=== PATIENT | male | born 1950 | race Two or more races ===

== ENCOUNTER 2020-06-18 08:21 | Emergency (ER) | payer OTHER, MEDICAID ==
[~2020-06-18] VITALS: Ht 175.3 cm; Wt 99.8 kg
[2020-06-18 08:58] VITALS: BP 146/85
[2020-06-18 09:40] LABS: Basophils # (auto) 0 10 ^3/uL (0-0.2); Basophils % (auto) 0.5 % (0.0-2.0); Eosinophils # (auto) 0 10 ^3/uL (0-0.8); Eosinophils % (auto) 0.4 % (0.0-7.0); Hematocrit 48.5 % (41.0-53.0); Hemoglobin 16.6 g/dL (13.5-17.5); Lymphocytes # (auto) 1.9 10 ^3/uL (0.4-5.4); Lymphocytes % (auto) 24.4 % (10.0-50.0); Mean Corpuscular Hemoglobin 29.8 pg (28.0-32.0); Mean Corpuscular Hgb Conc. 34.2 g/dL (32.0-36.0); Mean Corpuscular Volume 86.9 fL (80.0-100.0); Monocytes # (auto) 0.8 10 ^3/uL (0-1.3); Monocytes % (auto) 10.1 % (0.0-12.0); Neutrophils # (auto) 5.1 10 ^3/uL (1.6-8.6); Neutrophils % (auto) 64.6 % (37.0-80.0); Nucleated Red Blood Cells % 0.1 %; Platelet Count (auto) 405 10^3/uL (140-450); Red Blood Cells 5.58 10^6/uL (4.5-5.90); White Blood Cell 7.9 10^3/uL (4.4-10.8)
[2020-06-18 10:07] LABS: Albumin 3.2 g/dL (3.4-5.0); Calcium 8.3 mg/dL (8.5-10.1); Potassium 4.1 mmol/L (3.5-5.1)
[2020-06-18 10:08] LABS: BUN/Creatinine Ratio 16.9
[2020-06-18 10:13] LABS: Bilirubin, Total 0.6 mg/dL (0.2-1.0); Total Protein 8.2 g/dL (6.4-8.2)
[2020-06-18] MEDS ORDERED: cefTRIAXone SOD 1,000 MG VL IM ONE (10:45)
== END 2020-06-18 11:30 | disposition home or self-care (01) ==
LOC: ER 08:21
DX: J20.9 Acute bronchitis, unspecified (principal); J03.90 Acute tonsillitis, unspecified; Z20.828 Contact with and (suspected) exposure to other viral communicable diseases
CPT/HCPCS: 36415; 71045; 80053; 84484; 85025; 87426; 93005; 96372; 99285; C9803; J0696; U0003

== ENCOUNTER 2020-09-02 16:02 | Emergency (ER) | payer OTHER, MEDICAID ==
[~2020-09-02] VITALS: Ht 175.3 cm; Wt 86.2 kg
[2020-09-02 16:03] VITALS: BP 178/95
[2020-09-02 17:09] LABS: Basophils # (auto) 0.1 10 ^3/uL (0-0.2); Basophils % (auto) 0.9 % (0.0-2.0); Eosinophils # (auto) 0.2 10 ^3/uL (0-0.8); Hematocrit 44.5 % (41.0-53.0); Hemoglobin 15.2 g/dL (13.5-17.5); Lymphocytes # (auto) 3.2 10 ^3/uL (0.4-5.4); Lymphocytes % (auto) 27.6 % (10.0-50.0); Mean Corpuscular Hemoglobin 29.7 pg (28.0-32.0); Mean Corpuscular Hgb Conc. 34.2 g/dL (32.0-36.0); Mean Corpuscular Volume 86.8 fL (80.0-100.0); Monocytes # (auto) 0.8 10 ^3/uL (0-1.3); Monocytes % (auto) 6.8 % (0.0-12.0); Neutrophils # (auto) 7.3 10 ^3/uL (1.6-8.6); Neutrophils % (auto) 62.7 % (37.0-80.0); Nucleated Red Blood Cells % 0.2 %; Platelet Count (auto) 178 10^3/uL (140-450); Red Blood Cells 5.12 10^6/uL (4.5-5.90); Red Cell Distribution Width 14.6 % (11.8-14.3); White Blood Cell 11.6 10^3/uL (4.4-10.8)
[2020-09-02 17:28] LABS: Albumin 3.4 g/dL (3.4-5.0); Calcium 8.2 mg/dL (8.5-10.1)
[2020-09-02 17:32] LABS: BUN/Creatinine Ratio 17.9; Bilirubin, Total 0.4 mg/dL (0.2-1.0); Total Protein 7.6 g/dL (6.4-8.2)
== END 2020-09-02 18:33 | disposition left against medical advice (07) ==
LOC: ER 16:02
DX: H33.21 Serous retinal detachment, right eye (principal)
CPT/HCPCS: 36415; 70450; 80053; 85025